=== PATIENT | male | born 1990 | race Caucasian/White ===

== ENCOUNTER → 2024-05-14 | Outpatient (CLI) | payer OTHER, SELFPAY ==
--- NOTE | 2024-05-14 09:31 | XR_ITS ---
Examination: Lumbar spine, 5 views Technique: Lumbar spine AP, lateral, coned lateral lower lumbar spine, bilateral obliques 5 views Exam date and time: May 14, 2024 0945 hours INDICATIONS: Back pain beginning 4 months ago, lumbar spine surgery 2020 FINDINGS: Satisfactory alignment lumbar vertebral bodies Mild to moderate diffuse lumbar disc narrowing, most prominent at L5-S1 No fracture No spondylolisthesis IMPRESSION: Mild to moderate diffuse lumbar degenerative disc disease, most prominent at L5-S1
[2024-05-14 11:53] LABS: Cardiac Risk Estimate 4.8 RATIO (4.0-6.7); Cholesterol 235 mg/dL (132-200); HDL Cholesterol 49 mg/dL (40-60); LDL Cholesterol,Calculated 154 mg/dL (0-130); Triglycerides 160 mg/dL (30-150)
== END | disposition home or self-care (01) ==
LOC: CDIM 09:26
PROVIDERS: Referring Provider Registered Nurse; Visit Provider Registered Nurse
DX: M51.369 Other intervertebral disc degeneration, lumbar region without mention of lumbar back pain or lower extremity pain (principal); M51.379 Other intervertebral disc degeneration, lumbosacral region without mention of lumbar back pain or lower extremity pain; E78.2 Mixed hyperlipidemia
CPT/HCPCS: 36415; 72110; 80061

== ENCOUNTER → 2024-05-19 | Outpatient (CLI) | payer BC, OTHER, SELFPAY ==
--- NOTE | 2024-05-19 13:30 | XR_ITS ---
Examination: MRI lumbar spine without contrast Date and time of exam: May 19, 2024 1400 hours INDICATIONS: Lower back pain radiating down the left leg 5 months post lifting injury Technique: Multiple MRI axial and sagittal sections lumbar spine. Sagittal T2-weighted images, TR 3500, TE 118 T1 weighted transverse sections, TR 688 T8.5, T2-weighted sagittal sections T1 weighted sagittal sections TR 621, TE 30 T2 axial sections, TR 4, 190, TE 84. Findings: Adequate alignment lumbar vertebral bodies Disc desiccation lower 2 lumbar levels Normal marrow signal lumbar vertebral bodies L5-S1 6 mm central right paracentral disc bulge contiguous with the right S1 nerve root, extending to the right and left foramen producing mild bilateral L5 ganglionic compression L4-L5 7 mm central paracentral disc bulge L3-L4 4 mm central lumbar disc bulge L2-L3 no disc protrusion L1-L2 no disc protrusion IMPRESSION: L5-S1 6 mm central right paracentral disc bulge contiguous with the right S1 nerve root, extending to the right and left foramina producing mild bilateral L5 ganglionic compression L4-L5 7 mm central paracentral disc bulge L3-L4 4 mm central lumbar disc bulge
== END | disposition home or self-care (01) ==
LOC: SMRI 13:29
PROVIDERS: PCP Registered Nurse; Referring Provider Registered Nurse; Visit Provider Registered Nurse
DX: M51.379 Other intervertebral disc degeneration, lumbosacral region without mention of lumbar back pain or lower extremity pain (principal); M51.369 Other intervertebral disc degeneration, lumbar region without mention of lumbar back pain or lower extremity pain; G95.20 Unspecified cord compression
CPT/HCPCS: 72148